=== PATIENT | male | born 1960 | race Caucasian/White ===

== ENCOUNTER 2017-07-28 16:11 | Inpatient (IN) ==
[2017-07-28] MEDS ORDERED: 0.9 % Sodium Chloride 1,000 ML IVC ONE (18:46)
[2017-07-28] MEDS ORDERED: Piperacillin/Tazobactam 3.375 GM in D5% in Water (Mini-Bag+) 100 ML IVPB ONE (18:46)
--- NOTE | 2017-07-28 18:47 | Emergency Department Note ---
Disposition Clinical Impression: Alcohol use, Sepsis Bilateral pneumonia Qualifiers: Pneumonia type: due to unspecified organism Lung location: unspecified part of lung Qualified Code(s): J18.9 - Pneumonia, unspecified organism Disposition: Admitted As Inpatient Condition: Fair Referrals: Roland Condon DO [Primary Care Provider] - Forms: ED Satisfaction Letter Time of Disposition: 19:54 SOB HPI - General Chief Complaint: ED Shortness of Breath/Dyspnea Stated Complaint: double pneumonia Time Seen by Provider: 07/28/17 17:23 Source: patient Limitations: no limitations Nursing Notes Reviewed: Yes Vital Signs Reviewed: Yes - History of Present Illness 56-year-old male history of hypertension, hyperlipidemia presents with about a week of cough and congestion, patient states that he woke up this morning feeling generalized aches, myalgias, states that his symptoms got worse, he is coughing a lot productive of sputum is clear round, the patient states he went to urgent care and they diagnosed him with bilateral pneumonia, the patient was sent here, some fevers of 102-103 degrees at home. Has been taking Tylenol. Also reports some chest discomfort, and nausea. Rates his pain 3 out of 10 and worse with coughing. +EtOH use Pt Subjective Complaint: shortness of breath Context: recent illness Severity: moderate Consistency/Duration: intermittent Improves with: nothing Worsens with: lying flat, exertion Associated symptoms: Reports: chest pain, fever, cough, sputum production Treatment prior to arrival: none Cough present: No Sputum production: Yes Sputum Amount: Small Sputum Color: Clear, White - Related Data Home Medications Medication Instructions Recorded Confirmed Acyclovir [Zovirax] 400 mg PO DAILY 07/28/17 07/28/17 Lisinopril/Hydrochlorothiazide 1 each PO BID 07/28/17 07/28/17 [Zestoretic 20-12.5 mg Tablet] Potassium Chloride [K-Tab ER] 20 meq PO TID 07/28/17 07/28/17 Allergies Allergy/AdvReac Type Severity Reaction Status Date / Time No Known Allergies Allergy Verified 07/28/17 14:54 All systems ED: reviewed and negative except as stated. Review of Systems: As Per HPI Constitutional: Reports: fever, chills Eyes: Denies: eye pain ENT ED: Denies: ear pain, throat pain Cardiovascular: Denies: chest pain Respiratory: Reports: as per HPI, cough, dyspnea Gastrointestinal: Reports: nausea. Denies: abdominal pain Genitourinary: Denies: urgency, dysuria Musculoskeletal: Denies: back pain Integumentary: Denies: rash, abrasion Past Medical History - Past Medical History Attestation: Yes The following information was validated with the patient. Source: patient Medical history: Reports: hypertension Psychiatric history: Reports: no psych history - Social History Smoking Status: Never smoker Smokeless Tobacco Status: No Alcohol use: Reports: occasionally Drug use: Reports: none Physical Exam Constitutional: Middle-aged male appears mildly disheveled, tachycardic and febrile Eyes: PERRLA, sclera anicteric ENT & Mouth: MM dry Neck: normal inspection, neck is supple Resp: Coarse Rales at the bases bilaterally CV: Tachycardia no m/g/r GI: normal inspection, soft, no guarding or rigidity Neuro: A&O3, CNII-XII grossly intact, SAHU Skin: on limited exam, skin intact with no rashes or lesions - General Limitations: no limitations General appearance: alert Course Course Narrative: Patient with evidence of a pneumonia, tachycardia and fever make him septic patient, plan is for aspiration pneumonia coverage with Zosyn, before that we will get blood cultures lactate, liter fluid bolus and maintenance fluid, chest CT scan ordered to better delineate his infection, patient also is getting blood work times lactate blood cultures 2 CBC BMP troponin - Reevaluation(s) Reevaluation #1: Patient meets criteria for sepsis with tachycardia heart rate greater than 90 temperature greater than 100.8 his bilateral infiltrates was started on broad- spectrum antibiotics's lactate is not elevated, patient was admitted to Dr. Perrin service the hospitalist is accepting no evidence of severe sepsis or septic shock stable vital signs fluids going patient stable at the time of admission. Time: 19:54 Vital Signs Temperature 100.8 F H 07/28/17 16:36 Pulse Rate 91 07/28/17 16:36 Respiratory Rate 20 07/28/17 16:36 Blood Pressure 135/86 07/28/17 16:36 O2 Sat by Pulse Oximetry 94 07/28/17 16:36 Temperature 100.8 F H 07/28/17 16:36 Pulse Rate 87 07/28/17 19:54 Respiratory Rate 18 07/28/17 19:54 Blood Pressure 129/83 07/28/17 19:54 O2 Sat by Pulse Oximetry 94 07/28/17 19:54 Oxygen Delivery Oxygen Delivery Room Air Shortness of Breath/Dyspnea - Differential Diagnosis Likely: congestive heart failure, pneumonia, pulmonary embolism - Medical Records Medical records reviewed: Yes I reviewed the patient's medical records. - Lab Data Lab results reviewed: Yes I reviewed the patient's lab results. Result diagrams: 07/28/17 18:41 07/28/17 18:41 Lab Results 07/28/17 07/28/17 07/28/17 Range/Units 18:41 18:41 18:41 WBC 5.0 (4.3-11.1) K/mcL RBC 4.52 (4.19-5.50) M/mcL Hgb 15.1 (12.9-16.9) g/dL Hct 42.1 (37.5-50.1) % MCV 93.1 (83.0-100.0) fL MCH 33.4 H (28.0-33.3) pg MCHC 35.9 H (31.6-35.5) g/dL RDW 12.6 (11.5-14.5) % Plt Count 220 (140-400) K/mcL MPV 9.9 (9.4-12.4) fL Seg Neutrophils % 60.0 % Band Neutrophils % 2.0 (0-4) % Lymphocytes % 28.0 % Monocytes % 6.0 % Metamyelocytes % 4.0 H (0) % Neutrophils # 3.1 (1.6-8.9) K/mcL Lymphocytes # 1.4 (0.6-4.6) K/mcL Monocytes # 0.3 (0.0-1.3) K/mcL Reactive Lymphocytes Present A (Not Present) Platelet Estimate Normal (Normal) Sodium 134 L (136-145) mEq/L Potassium 3.8 (3.5-5.1) mEq/L Chloride 99 (98-107) mEq/L Carbon Dioxide 26 (23-29) mEq/L BUN 13 (6-20) mg/dL Creatinine 0.79 (0.70-1.30) mg/dL Est GFR ( Amer) > 60 (> 60) Est GFR (Non-Af Amer) > 60 (> 60) BUN/Creatinine Ratio 16 (6-26) Glucose 96 (70-105) mg/dL Calculated Osmolality 278 L (280-300) Lactic Acid (0.5-2.2) mmol/L Calcium 8.7 (8.6-10.3) mg/dL Troponin I < 0.03 (< 0.04) ng/mL B-Natriuretic Peptide (Less than 100) pg/mL 07/28/17 07/28/17 Range/Units 18:41 18:41 WBC (4.3-11.1) K/mcL RBC (4.19-5.50) M/mcL Hgb (12.9-16.9) g/dL Hct (37.5-50.1) % MCV (83.0-100.0) fL MCH (28.0-33.3) pg MCHC (31.6-35.5) g/dL RDW (11.5-14.5) % Plt Count (140-400) K/mcL MPV (9.4-12.4) fL Seg Neutrophils % % Band Neutrophils % (0-4) % Lymphocytes % % Monocytes % % Metamyelocytes % (0) % Neutrophils # (1.6-8.9) K/mcL Lymphocytes # (0.6-4.6) K/mcL Monocytes # (0.0-1.3) K/mcL Reactive Lymphocytes (Not Present) Platelet Estimate (Normal) Sodium (136-145) mEq/L Potassium (3.5-5.1) mEq/L Chloride (98-107) mEq/L Carbon Dioxide (23-29) mEq/L BUN (6-20) mg/dL Creatinine (0.70-1.30) mg/dL Est GFR ( Amer) (> 60) Est GFR (Non-Af Amer) (> 60) BUN/Creatinine Ratio (6-26) Glucose (70-105) mg/dL Calculated Osmolality (280-300) Lactic Acid 1.0 (0.5-2.2) mmol/L Calcium (8.6-10.3) mg/dL Troponin I (< 0.04) ng/mL B-Natriuretic Peptide 13 (Less than 100) pg/mL - Radiology Data Radiology results reviewed: Yes I reviewed the patient's radiology results. Chest CT 07/28/17 17:32 IMPRESSION: Scattered bilateral airspace disease is likely infectious/ inflammatory in etiology. Consider short-term follow-up in 3 months to ensure resolution. Nodule on chest x-ray corresponds to a calcified granuloma in the left lower lobe. D/ / Jay Pulido MD / Jay Pulido MD Interpreting Provider: Jay Pulido MD - EKG Data EKG attestation: Yes I reviewed and interpreted this EKG. EKG shows normal: Reports: sinus rhythm Rate: Reports: normal (87 bpm WA 155 QRS 102 QTC 408 no evidence of acute ischemic changes.) Rhythm: Reports: NSR [place]/QRS: Reports: normal Attestation Statement - Attestation Attestation: I examined this patient and my medical decision-making was reviewed with the Resident Physician. I agree with the documented findings, disposition and treatment plan as described except to the extent set forth below. Findings consistent with pneumonia. Plan to admit after broad-spectrum antibiotics. Patient is stable at the time of admission. Blood cultures were sent. Patient had no hypoxia at the time of admission.
[2017-07-28 18:56] LABS: Hematocrit 42.1 % (37.5-50.1); Hemoglobin 15.1 g/dL (12.9-16.9); Lymphocytes # 1.4 K/mcL (0.6-4.6); Mean Corpuscular HGB Conc 35.9 g/dL (31.6-35.5); Mean Corpuscular Hemoglobin 33.4 pg (28.0-33.3); Mean Corpuscular Volume 93.1 fL (83.0-100.0); Mean Platelet Volume 9.9 fL (9.4-12.4); Monocytes # 0.3 K/mcL (0.0-1.3); Platelet Count 220 K/mcL (140-400); Red Blood Count 4.52 M/mcL (4.19-5.50); Red Cell Distribution Width 12.6 % (11.5-14.5)
[2017-07-28 19:16] LABS: Neutrophils # 3.1 K/mcL (1.6-8.9); Platelet Estimate Normal (Normal); Reactive Lymphocytes Present (Not Present)
[2017-07-28 19:43] LABS: BUN/Creatinine Ratio 16 (6-26); Blood Urea Nitrogen 13 mg/dL (6-20); Calcium 8.7 mg/dL (8.6-10.3); Carbon Dioxide 26 mEq/L (23-29); Chloride 99 mEq/L (98-107); Glucose 96 mg/dL (70-105); Osmolality,Calculated 278 (280-300); Potassium 3.8 mEq/L (3.5-5.1); Sodium 134 mEq/L (136-145); eGFR For African Americans > 60 (> 60); eGFR For Non-African Americans > 60 (> 60)
[2017-07-28] MEDS ORDERED: Piperacillin/Tazobactam 3.375 GM in Water for inj. (sterile) 20 ML 20 ML IVP ONE (19:45)
--- NOTE | 2017-07-28 20:24 | Internal Med History&Physical ---
<Freda Ahn - Last Filed: 07/28/17 20:20> Date of Encounter: 07/28/17 Time of Encounter: 20:20 Assessment and Plan (1) Bilateral pneumonia Current visit: Yes Status: Acute 56-year-old gentleman presented to the emergency room from urgent care with one week of coughing, congestion, fever, malaise, and fatigue. 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 Pulse oximetry Sputum culture Cough suppressant will need f/u chest xray in 4 to 6 weeks to follow for resolution Qualifiers: Pneumonia type: due to unspecified organism Lung location: unspecified part of lung Qualified Code(s): J18.9 - Pneumonia, unspecified organism (2) Alcohol use Current visit: Yes Status: Acute CIWA scale to monitor for withdrawal (3) Hypertension Current visit: Yes Status: Acute Continue home medications and monitor blood pressure Qualifiers: Hypertension type: essential hypertension Qualified Code(s): I10 - Essential (primary) hypertension (4) Lung nodule, solitary Current visit: Yes Status: Acute Three-month follow-up as per his primary care physician, calcified granuloma (5) Herpes genitalis in men Current visit: Yes Status: Acute continue acyclovir Internal Medicine - H&P: HPI Admitted From: Home Plans for Post Hospital Care: Home History of present illness: Mr. Garcia is a 56 year old male who presented to the ER after being evaluated at a local urgent care. The patient's had a week of cough, congestion, fever, decreased appetite, and fatigue. He stated he felt better yesterday and was up today doing some things and began to feel worse with lightheadedness and felt he was going to pass out. He stated he has coughed so much that he has chest and abdominal wall pain. He states his cough is productive for frothy white sputum. He has been taking NyQuil and DayQuil with little effect. A past medical history significant for hypertension, obesity, and alcohol use consisting of the fifth of whiskey a week. He states he quit smoking about 23 years ago. He is also treated for genital herpes. He is currently sitting in a stretcher in the ER in no distress. He is on room air with no accessory muscle use noted. He reports his pain around a 3 out of a 10 scale with coughing. He is aware of the plan for admission with IV antibiotics, he has no questions or concerns. Past Med Surg Social Fam HX - Past Medical History Medical history: hypertension, other (Obesity, herpes) Psychiatric history: no psych history - Social History Smoking Status: Former smoker Smokeless Tobacco Status: No Alcohol use: occasionally (Drinks 1/5 of whiskey per week and has never had withdrawal if he stops drinking) Drug use: none Occupational status: employed Current living situation: Home - Independent Activity Level: Independent ambulation - Additional Family History Additional family history: Noncontributory to this event Internal Medicine - H&P: Meds Acyclovir [Zovirax] 400 mg PO DAILY 07/28/17 [History] Lisinopril/Hydrochlorothiazide [Zestoretic 20-12.5 mg Tablet] 1 each PO BID 05/05 [History] Potassium Chloride [K-Tab ER] 20 meq PO TID 07/28/17 [History] 3 Allergy/AdvReac Type Severity Reaction Status Date / Time No Known Allergies Allergy Verified 07/28/17 14:54 All Systems PM: A 10-system review of systems was performed and is negative for pertinent findings except as documented above in the HPI. - Constitutional Constitutional: anorexia, chills, fatigue, fever(s), weakness, no night sweats - EENT Eyes: no change in vision, no discharge, no pain, no photophobia Ears: no ear discharge, no ear pain, no tinnitus Nose, mouth and throat: no dysphagia, no nasal discharge, no neck pain, no sore throat - Cardiovascular Cardiovascular ROS IM: chest pain (With coughing), no diaphoresis, no dyspnea, no lightheadedness, no palpitations, no syncope - Respiratory Respiratory: cough, dyspnea on exertion, pain with cough, no dyspnea, no wheezing, no excessive phlegm production - Gastrointestinal Gastrointestinal: diarrhea, no abdominal pain, no hematemesis, no hematochezia, no melena, no nausea, no vomiting - Musculoskeletal Musculoskeletal ROS IM: no numbness, no tingling - Integumentary Integumentary IM: no rash, no unusual bruising - Neurological Neurological ROS: no confusion, no convulsions, no focal weakness, no numbness, no tingling, no tremor(s) - Hematologic/Lymphatic Hematologic/Lymphatic: no easy bruising - Constitutional Vitals: Temp Pulse Resp BP Pulse Ox 100.8 F H 87 18 129/83 94 07/28/17 16:36 07/28/17 19:54 07/28/17 19:54 07/28/17 19:54 07/28/17 19:54 General appearance: Present: A&O X 3, pleasant, no acute distress, obese, answers questions appropriately - Head Head exam: Present: atraumatic, normocephalic - Eye Eye exam: Present: PERRL, conjuntiva pink, sclera anicteric Pupils: Present: PERRL - Neck Neck exam general surgery: Present: supple, trachea midline. Absent: lymphadenopathy - Respiratory Respiratory exam: Present: CTAB (Decreased in the bases, no cough on forced expiration, no adventitious breath sounds noted). Absent: accessory muscle use , rales, rhonchi, wheezes - Cardiovascular Cardiovascular exam: Present: RRR, +S1, +S2. Absent: diastolic murmur, gallop, rubs, systolic murmur - GI/Abdominal GI/Abdominal exam: Present: firm (Protuberant, abdominal muscle sore with movement and palpation), normal bowel sounds, no peritoneal signs. Absent: distended, tenderness - Extremities Exam Extremities exam: Absent: calf tenderness, cyanotic, pedal edema - Neurological Exam Neurological exam: Present: CN II-XII intact, oriented X3, no focal deficits. Absent: pronater drift, facial droop, speech deficit - Skin Skin exam: Present: intact, warm (Slight diaphoretic) Internal Med - H&P Results - Labs CBC & Chem 7: 07/28/17 18:41 07/28/17 18:41 Labs: Short CBC 07/28/17 Range/Units 18:41 WBC 5.0 (4.3-11.1) K/mcL Hgb 15.1 (12.9-16.9) g/dL Hct 42.1 (37.5-50.1) % Plt Count 220 (140-400) K/mcL Neutrophils # 3.1 (1.6-8.9) K/mcL BMP 07/28/17 18:41 Sodium 134 L Potassium 3.8 Chloride 99 Carbon Dioxide 26 BUN 13 Creatinine 0.79 Glucose 96 Calcium 8.7 Cardiac Enzymes 07/28/17 Range/Units 18:41 Troponin I < 0.03 (< 0.04) ng/mL - Impressions ITS Impressions Chest CT 07/28/17 17:32 IMPRESSION: Scattered bilateral airspace disease is likely infectious/ inflammatory in etiology. Consider short-term follow-up in 3 months to ensure resolution. Nodule on chest x-ray corresponds to a calcified granuloma in the left lower lobe. D/ / Jay Pulido MD / Jay Pulido MD Interpreting Provider: Jay Pulido MD <Musa Perrin J - Last Filed: 07/28/17 21:58> Date of Encounter: 07/28/17 Internal Medicine - H&P: HPI History of present illness: Mr. Garcia is a 56 year old male All Systems PM: A 10-system review of systems was performed and is negative for pertinent findings except as documented above in the HPI. - Constitutional Vitals: Temp Pulse Resp BP Pulse Ox 100.8 F H 87 18 129/83 94 07/28/17 16:36 07/28/17 19:54 07/28/17 19:54 07/28/17 19:54 07/28/17 19:54 Internal Med - H&P Results - Labs CBC & Chem 7: 07/28/17 18:41 07/28/17 18:41 - Attending Attestation I have personally performed a face to face evaluation on this patient. I have reviewed and agree with the care plan. History and Exam by me shows: 56 yo male with cough and cold symptoms for 1 week with associated chest soreness. Developed progressive SOB, could not walk to garage. Went to urgent care with CXR suspicous for PNA. Admitted to CAP therapy needing IV antibiotics CT/CT chest wo con IMPRESSION: Scattered bilateral airspace disease is likely infectious/ inflammatory in etiology. Consider short-term follow-up in 3 months to ensure resolution. Nodule on chest x-ray corresponds to a calcified granuloma in the left lowerlobe. General - AAO x 3 Psych - Appropriate affect/speech. No agitation Eyes - WADE. Eye lids intact. No scleral icterus Neuro - No gross peripheral or central neuro deficits with intact CN 2-12 exam Heart - Sinus. RRR. S1 and S2 present. No added HS/murmurs appreciated. No elevated JVD appreciated. Lung - Decreased air entry b/l, bibasal crackles. No wheezes appreciated GI - Soft, non-tender. No hepatosplenomegaly/ascites. BS+ - No CVA/suprapubic tenderness or palpable bladder distension A/P PNA - treat for CAP - IV zosyn, azithro - send serologies, RVP - pulse ox - close monitoring Alcoholism - only drinks 1/5 every weekend - no hx of withdrawal - watch closely HTN Genital herpes - acyclovir
[2017-07-28] MEDS ORDERED: *HR* Promethazine 25 MG/ML VIAL IVP PRN (20:54)
[2017-07-28] MEDS ORDERED: *HR* LORazepam 2 MG/ML VIAL IVP PRN ×3 (20:54)
[2017-07-28] MEDS ORDERED: Naloxone 0.4 MG/ML INJ IVP PRN (21:07)
[2017-07-28] MEDS ORDERED: Acetaminophen 325 MG TABLET PO PRN (21:07)
[2017-07-28] MEDS ORDERED: Ipratropium/Albuterol Neb 3 ML IH PRN (21:58)
[2017-07-28] MEDS: Azithromycin 500 MG in D5% in Water 250 ML IVPB SCH (22:37)
[2017-07-28] MEDS: 0.9 % Sodium Chloride 1,000 ML IVC SCH (23:47)
[2017-07-28] MEDS: *HR* Heparin 5,000 UNIT/ML VIAL SQ SCH (23:47)
[2017-07-29 01:56] LABS: Adenovirus Not Detected (Not Detect); Bordetella Pertussis Not Detected (Not Detect); Chlamydophila pneumoniae Not Detected (Not Detect); Coronavirus 229E Not Detected (Not Detect); Coronavirus HKU1 Not Detected (Not Detect); Coronavirus NL63 Not Detected (Not Detect); Coronavirus OC43 Not Detected (Not Detect); Human Metapneumovirus Not Detected (Not Detect); Human Rhinovirus/Enterovirus Not Detected (Not Detect); Influenza A Subtype 2009 H1 Not Detected (Not Detect); Influenza A Untypeable Not Detected (Not Detect); Influenza B Not Detected (Not Detect); Mycoplasma pneumoniae Not Detected (Not Detect); Parainfluenza Virus 1 Not Detected (Not Detect); Parainfluenza Virus 2 Not Detected (Not Detect); Parainfluenza Virus 3 Not Detected (Not Detect); Parainfluenza Virus 4 Not Detected (Not Detect); Respiratory Syncytial Virus Not Detected (Not Detect)
[2017-07-29] MEDS: Piperacillin/Tazobactam 3.375 GM/200 ML BAG IVPB SCH ×3 (03:11→22:10)
[2017-07-29 04:21] LABS: Basophils % 0.5 %; Immature Granulocytes % 0.8 % (0-4); Lymphocytes # 1.7 K/mcL (0.6-4.6); Lymphocytes % 43.5 %; Mean Corpuscular HGB Conc 34.7 g/dL (31.6-35.5); Mean Corpuscular Hemoglobin 32.8 pg (28.0-33.3); Mean Corpuscular Volume 94.5 fL (83.0-100.0); Mean Platelet Volume 9.8 fL (9.4-12.4); Monocytes # 0.4 K/mcL (0.0-1.3); Monocytes % 11.5 %; Neutrophils # 1.7 K/mcL (1.6-8.9); Platelet Count 216 K/mcL (140-400); Red Blood Count 4.02 M/mcL (4.19-5.50); Red Cell Distribution Width 12.9 % (11.5-14.5); Segmented Neutrophils % 43.7 %
[2017-07-29 04:27] LABS: INR 1.1; Prothrombin Time 11.6 Seconds (9.4-12.1)
[2017-07-29 04:29] LABS: Activated Partial Thrombo Time 26.8 Seconds (26.0-36.0)
[2017-07-29 04:31] LABS: Hemoglobin 13.2 g/dL (12.9-16.9)
[2017-07-29] MEDS: Ipratropium/Albuterol Neb 3 ML IH SCH ×4 (04:37→22:36)
[2017-07-29 04:48] LABS: Platelet Estimate Normal (Normal); Reactive Lymphocytes Present (Not Present)
[2017-07-29 05:05] LABS: BUN/Creatinine Ratio 17 (6-26); Blood Urea Nitrogen 13 mg/dL (6-20); Calcium 7.9 mg/dL (8.6-10.3); Carbon Dioxide 27 mEq/L (23-29); Chloride 103 mEq/L (98-107); Chol/HDL Ratio 3.4 (0-4.9); Cholesterol 99 mg/dL (< 200); Glucose 86 mg/dL (70-105); HDL Cholesterol 29 mg/dL (40-59); LDL Cholesterol,Calculated 47 mg/dL (0-99); Magnesium 1.9 mg/dL (1.6-2.6); Osmolality,Calculated 283 (280-300); Phosphorous 2.6 mg/dL (2.7-4.5); Potassium 3.4 mEq/L (3.5-5.1); Sodium 137 mEq/L (136-145); Triglycerides 116 mg/dL (< 150); eGFR For African Americans > 60 (> 60); eGFR For Non-African Americans > 60 (> 60)
[2017-07-29] MEDS: *HR* Heparin 5,000 UNIT/ML VIAL SQ SCH ×3 (05:58→22:10)
[2017-07-29] MEDS: 0.9 % Sodium Chloride 1,000 ML IVC SCH (09:14)
--- NOTE | 2017-07-29 09:14 | Internal Med Progress Note ---
<Rodrigo Tariq - Last Filed: 07/29/17 13:53> Date of Encounter: 07/29/17 Time of Encounter: 09:14 - Assessment and plan (1) Bilateral pneumonia Current Visit: Yes Status: Acute Assessment and plan: CT chest on arrival: Scattered bilateral airspace disease is likely infectious / inflammatory in etiology. No leukcytosis VSS Negative Flu swab, Viral PCR neg, legionella and strep pneumo antigen urine negative Pending mycoplasm and blood cultures Sepsis criteria met on arrival with fever and HR >90 - Resolving Suspect aspiration etiology with chronic EtOH abuse Plan: IV Zosyn and Azithromycin IVF Duonebs Adding Prednisone 40mg daily O2 supplementation Supportive care Will continue to monitor closely Qualifiers: Pneumonia type: due to unspecified organism Lung location: unspecified part of lung Qualified Code(s): J18.9 - Pneumonia, unspecified organism (2) Acute respiratory failure with hypoxia Current Visit: Yes Status: Resolved Assessment and plan: Present on admission. Still at high risk and will continue to monitor his respiratory status closely (3) Sepsis Current Visit: Yes Status: Resolved Assessment and plan: Criteria met on arrival with elevated temp and HR>90 with known PNA Resolving See above Qualifiers: Sepsis type: sepsis due to unspecified organism Qualified Code(s): A41.9 - Sepsis, unspecified organism (4) ETOH abuse Current Visit: Yes Status: Acute Assessment and plan: States that he drinks 1-1.5 fifths of whiskey per week CIWA protocol in place Multivitamin Folic acid Thiamine PRN Ativan (5) Hypertension Current Visit: Yes Status: Acute Assessment and plan: BP stable Continue Lisinopril/HCTZ combo unchanged Qualifiers: Hypertension type: essential hypertension Qualified Code(s): I10 - Essential (primary) hypertension (6) Herpes genitalis in men Current Visit: Yes Status: Acute Assessment and plan: Continue Acyclovir (7) Lung nodule, solitary Current Visit: Yes Status: Acute Assessment and plan: Nodule on chest x-ray corresponds to a calcified granuloma in the left lower lobe. Followup in 3 months for repeat evaluation (8) DVT prophylaxis Current Visit: Yes Status: Acute Assessment and plan: Heparin 5000 units q8hrs - Subjective Interval history: Patient is admitted for bilateral PNA He is resting comfortably in bed this morning No concerns per nursing overnight He reports that is breathing is mildly improved from yesterday Denies any CP, fevers, chills. n/v, abdominal pain or GI issues - Constitutional Vitals: Temp Pulse Resp BP Pulse Ox 98.6 F 67 16 129/84 96 07/29/17 06:46 07/29/17 06:46 07/29/17 06:46 07/29/17 06:46 07/29/17 06:46 General appearance: Present: A&O X 3, pleasant, no acute distress, obese, answers questions appropriately - Head Head exam: Present: atraumatic, normocephalic - Eye Eye exam: Present: EOMI, normal appearance, conjuntiva pink, sclera anicteric - ENT ENT exam: Present: mucous membranes moist - Neck Neck exam general surgery: Present: supple, trachea midline - Respiratory Respiratory exam: Present: rhonchi (bibasilar). Absent: accessory muscle use, chest wall tenderness, decreased breath sounds, respiratory distress, tachypnea - Cardiovascular Cardiovascular exam: Present: RRR, +S1, +S2 - GI/Abdominal GI/Abdominal exam: Present: normal bowel sounds, soft. Absent: tenderness - Extremities Exam Extremities exam: Present: warm. Absent: pedal edema, tenderness - Neurological Exam Neurological exam: Present: alert, oriented X3, no focal deficits - Psychiatric Psychiatric exam: Present: normal affect, normal mood - Skin Skin exam: Present: dry, normal color, warm. Absent: diaphoretic Internal Medicine: Result - Labs CBC & Chem 7: 07/29/17 03:31 07/29/17 03:31 Labs: Short CBC 07/29/17 Range/Units 03:31 WBC 3.8 L (4.3-11.1) K/mcL Hgb 13.2 D (12.9-16.9) g/dL Hct 38.0 (37.5-50.1) % Plt Count 216 (140-400) K/mcL Neutrophils # 1.7 (1.6-8.9) K/mcL BMP 07/29/17 03:31 Sodium 137 Potassium 3.4 L Chloride 103 Carbon Dioxide 27 BUN 13 Creatinine 0.77 Glucose 86 Calcium 7.9 L - ABG Interpretation ABG results: PT/INR, D-dimer PT 11.6 Seconds (9.4-12.1) 07/29/17 03:31 Consult Discharge Plan - Plan Referrals: Roland Condon DO [Primary Care Provider] - <Yari Bui - Last Filed: 07/29/17 16:55> Date of Encounter: 07/29/17 - Constitutional Vitals: Temp Pulse Resp BP Pulse Ox 97.9 F 82 15 145/70 93 07/29/17 11:04 07/29/17 11:04 07/29/17 11:04 07/29/17 11:04 07/29/17 11:04 Internal Medicine: Result - Labs CBC & Chem 7: 07/29/17 03:31 07/29/17 03:31 Labs: Short CBC 07/29/17 Range/Units 03:31 WBC 3.8 L (4.3-11.1) K/mcL Hgb 13.2 D (12.9-16.9) g/dL Hct 38.0 (37.5-50.1) % Plt Count 216 (140-400) K/mcL Neutrophils # 1.7 (1.6-8.9) K/mcL BMP 07/29/17 03:31 Sodium 137 Potassium 3.4 L Chloride 103 Carbon Dioxide 27 BUN 13 Creatinine 0.77 Glucose 86 Calcium 7.9 L - ABG Interpretation ABG results: PT/INR, D-dimer PT 11.6 Seconds (9.4-12.1) 07/29/17 03:31 - Attending Attestation I examined this patient and my medical decision-making was reviewed with the Resident Physician Dr. Tariq. I agree with the documented findings, disposition and treatment plan as described except to the extent set forth below. This is a 56 y/o M presented to local urgent care with worsening SOB, CORDOVA, Cough with expectoration. His chest CT showed b/l infiltrates and LLL nodule. Pt was admitted here for pneumonia and acute hypoxic resp failure. He states he is feeling little better now Gen: A, A, O x 3 Chest: Diminished BS b/;, diffuse wheezing, No crackles, no rales Heart; S1S2+ RRR No murmurs a/p 1. Acute pneumonia - mostly bacterial 2. Acute COPD exacerbation 3. Acute hypoxic resp failure cont empirical abx.. will deescalate abx in AM depending on how he responds in next 24hrs started him on high dose IV steroids since he does have diffuse wheezing 4. Morbid obesity with BMI - 38 counseled to loose weight He might have sleep apnea, may need to go for out pt sleep studies
[2017-07-29] MEDS: Folic Acid 1 MG TABLET PO SCH (09:15)
[2017-07-29] MEDS: Lisinopril-HCTZ 20-12.5mg TABLET PO SCH ×2 (09:15→20:38)
[2017-07-29] MEDS: Acyclovir 200 MG CAPSULE PO SCH (09:16)
[2017-07-29] MEDS: Vitamin B Complex/Vit C/Vit E 1 EACH TABLET PO SCH (09:16)
[2017-07-29] MEDS: Thiamine (B-1) 100 MG TABLET PO SCH (09:16)
[2017-07-29] MEDS ORDERED: predniSONE 20 MG TABLET PO SCH (13:15)
--- NOTE | 2017-07-29 15:57 | Electrocardiograph Report ---
[address] [place] [address] Test Date: 2017-07-28 Pat Name: Aravind Garcia Department: [id number] Room: 3B Gender: M Rating Officer: : 1960 Requested By: Iglesia Sandoval Order Number: [id number] Reading MD: Katerina Galindo Measurements Intervals [place] Rate: 82 P: 8 [place]: 156 QRS: -23 QRSD: 105 T: 33 QT: 363 QTc: 402 Interpretive Statements SINUS RHYTHM BORDERLINE LEFT AXIS DEVIATION Electronically Signed On 07-29-2017 15:55:51 EST by Katerina Galindo
[2017-07-29] MEDS: MethylPREDNISolone 40 MG/ML VIAL IVP SCH (17:54)
[2017-07-29] MEDS: Azithromycin 500 MG in D5% in Water 250 ML IVPB SCH (20:46)
[2017-07-30] MEDS: MethylPREDNISolone 40 MG/ML VIAL IVP SCH ×3 (00:18→17:43)
[2017-07-30] MEDS: Ipratropium/Albuterol Neb 3 ML IH SCH ×4 (04:11→23:17)
[2017-07-30] MEDS: Piperacillin/Tazobactam 3.375 GM/200 ML BAG IVPB SCH ×3 (04:24→21:36)
[2017-07-30] MEDS: *HR* Heparin 5,000 UNIT/ML VIAL SQ SCH ×3 (05:08→21:36)
[2017-07-30 05:58] LABS: Basophils % 0.3 %; Hemoglobin 14.2 g/dL (12.9-16.9); Immature Granulocytes % 0.6 % (0-4); Lymphocytes # 0.8 K/mcL (0.6-4.6); Lymphocytes % 22.3 %; Mean Corpuscular HGB Conc 34.6 g/dL (31.6-35.5); Mean Corpuscular Hemoglobin 32.3 pg (28.0-33.3); Mean Corpuscular Volume 93.4 fL (83.0-100.0); Mean Platelet Volume 9.4 fL (9.4-12.4); Monocytes # 0.1 K/mcL (0.0-1.3); Monocytes % 3.4 %; Neutrophils # 2.6 K/mcL (1.6-8.9); Platelet Count 282 K/mcL (140-400); Red Blood Count 4.39 M/mcL (4.19-5.50); Red Cell Distribution Width 12.5 % (11.5-14.5); Segmented Neutrophils % 73.4 %
[2017-07-30 06:10] LABS: BUN/Creatinine Ratio 16 (6-26); Blood Urea Nitrogen 12 mg/dL (6-20); Calcium 8.8 mg/dL (8.6-10.3); Carbon Dioxide 24 mEq/L (23-29); Chloride 103 mEq/L (98-107); Glucose 154 mg/dL (70-105); Osmolality,Calculated 285 (280-300); Potassium 3.8 mEq/L (3.5-5.1); Sodium 136 mEq/L (136-145); eGFR For African Americans > 60 (> 60); eGFR For Non-African Americans > 60 (> 60)
[2017-07-30 06:27] LABS: Platelet Estimate Normal (Normal)
[2017-07-30] MEDS: Folic Acid 1 MG TABLET PO SCH (08:34)
[2017-07-30] MEDS: Acyclovir 200 MG CAPSULE PO SCH (08:34)
[2017-07-30] MEDS: Lisinopril-HCTZ 20-12.5mg TABLET PO SCH ×2 (08:34→20:07)
[2017-07-30] MEDS: Thiamine (B-1) 100 MG TABLET PO SCH (08:34)
[2017-07-30] MEDS: Vitamin B Complex/Vit C/Vit E 1 EACH TABLET PO SCH (08:34)
--- NOTE | 2017-07-30 08:40 | Internal Med Progress Note ---
<Rodrigo Tariq - Last Filed: 07/30/17 08:51> Date of Encounter: 07/30/17 Time of Encounter: 08:38 - Assessment and plan (1) Bilateral pneumonia Current Visit: Yes Status: Acute Assessment and plan: CT chest on arrival: Scattered bilateral airspace disease is likely infectious / inflammatory in etiology. No leukcytosis, VSS Negative Flu swab, Viral PCR neg, legionella and strep pneumo antigen urine negative, Blood Cx neg x2 Pending mycoplasm Sepsis criteria met on arrival with fever and HR >90 - Resolving Suspect aspiration etiology with chronic EtOH abuse - Anaerobes and atypicals covered Patient is moving air much better today with mild wheezing throughout Plan: IV Zosyn and Azithromycin IVF Duonebs` Decreased to Solu-Medrol q12hrs O2 supplementation Supportive care Will continue to monitor closely Qualifiers: Pneumonia type: due to unspecified organism Lung location: unspecified part of lung Qualified Code(s): J18.9 - Pneumonia, unspecified organism (2) Acute respiratory failure with hypoxia Current Visit: Yes Status: Resolved Assessment and plan: Present on admission. Improving Ordered overnight oxygen study Will additionally need sleep study as an outpatient on discharge Still at high risk and will continue to monitor his respiratory status closely (3) Sepsis Current Visit: Yes Status: Resolved Assessment and plan: Criteria met on arrival with elevated temp and HR>90 with known PNA Resolving See above Qualifiers: Sepsis type: sepsis due to unspecified organism Qualified Code(s): A41.9 - Sepsis, unspecified organism (4) ETOH abuse Current Visit: Yes Status: Acute Assessment and plan: States that he drinks 1-1.5 fifths of whiskey per week HR stable CIWA protocol in place Multivitamin Folic acid Thiamine PRN Ativan (5) Hypertension Current Visit: Yes Status: Acute Assessment and plan: BP stable Continue Lisinopril/HCTZ combo unchanged Qualifiers: Hypertension type: essential hypertension Qualified Code(s): I10 - Essential (primary) hypertension (6) Herpes genitalis in men Current Visit: Yes Status: Acute Assessment and plan: Continue Acyclovir (7) Lung nodule, solitary Current Visit: Yes Status: Acute Assessment and plan: Nodule on chest x-ray corresponds to a calcified granuloma in the left lower lobe. Followup in 3 months for repeat evaluation (8) DVT prophylaxis Current Visit: Yes Status: Acute Assessment and plan: Heparin 5000 units q8hrs - Subjective Interval history: Patient is admitted for bilateral PNA He is ambulating around the room today on evaluation No concerns per nursing overnight He reports that is breathing is mildly improved from yesterday but coughing more Denies any CP, fevers, chills. n/v, abdominal pain or GI issues - Constitutional Vitals: Temp Pulse Resp BP Pulse Ox 97.7 F 73 18 138/90 94 07/30/17 07:28 07/30/17 07:28 07/30/17 07:28 07/30/17 07:28 07/30/17 07:28 General appearance: Present: cooperative, A&O X 3, pleasant, no acute distress, obese, answers questions appropriately - Head Head exam: Present: atraumatic, normocephalic - Eye Eye exam: Present: EOMI, normal appearance, conjuntiva pink, sclera anicteric - ENT ENT exam: Present: mucous membranes moist - Neck Neck exam general surgery: Present: supple, trachea midline - Respiratory Respiratory exam: Present: decreased breath sounds, wheezes. Absent: accessory muscle use, chest wall tenderness, rales, respiratory distress, rhonchi, tachypnea - Cardiovascular Cardiovascular exam: Present: RRR, +S1, +S2 - GI/Abdominal GI/Abdominal exam: Present: normal bowel sounds. Absent: soft, tenderness - Extremities Exam Extremities exam: Present: warm. Absent: calf tenderness, pedal edema, tenderness - Neurological Exam Neurological exam: Present: alert, oriented X3, no focal deficits - Psychiatric Psychiatric exam: Present: normal affect, normal mood - Skin Skin exam: Present: dry, warm. Absent: diaphoretic Internal Medicine: Result - Labs CBC & Chem 7: 07/30/17 05:31 07/30/17 05:31 Labs: Short CBC 07/30/17 Range/Units 05:31 WBC 3.6 L (4.3-11.1) K/mcL Hgb 14.2 (12.9-16.9) g/dL Hct 41.0 (37.5-50.1) % Plt Count 282 (140-400) K/mcL Neutrophils # 2.6 (1.6-8.9) K/mcL BMP 07/30/17 05:31 Sodium 136 Potassium 3.8 Chloride 103 Carbon Dioxide 24 BUN 12 Creatinine 0.74 Glucose 154 H Calcium 8.8 - ABG Interpretation ABG results: PT/INR, D-dimer PT 11.6 Seconds (9.4-12.1) 07/29/17 03:31 Consult Discharge Plan - Plan Referrals: Roland Condon DO [Primary Care Provider] - 08/09/17 12:00 pm <Yari Bui - Last Filed: 07/30/17 16:17> Date of Encounter: 07/30/17 - Constitutional Vitals: Temp Pulse Resp BP Pulse Ox 97.8 F 85 17 129/79 92 07/30/17 15:58 07/30/17 15:58 07/30/17 15:58 07/30/17 15:58 07/30/17 15:58 Internal Medicine: Result - Labs CBC & Chem 7: 07/30/17 05:31 07/30/17 05:31 Labs: Short CBC 07/30/17 Range/Units 05:31 WBC 3.6 L (4.3-11.1) K/mcL Hgb 14.2 (12.9-16.9) g/dL Hct 41.0 (37.5-50.1) % Plt Count 282 (140-400) K/mcL Neutrophils # 2.6 (1.6-8.9) K/mcL BMP 07/30/17 05:31 Sodium 136 Potassium 3.8 Chloride 103 Carbon Dioxide 24 BUN 12 Creatinine 0.74 Glucose 154 H Calcium 8.8 - ABG Interpretation ABG results: PT/INR, D-dimer PT 11.6 Seconds (9.4-12.1) 07/29/17 03:31 - Attending Attestation I examined this patient and my medical decision-making was reviewed with the Resident Physician Dr. Tariq. I agree with the documented findings, disposition and treatment plan as described except to the extent set forth below. This is a 56 y/o M presented to local urgent care with worsening SOB, CORDOVA, Cough with expectoration. His chest CT showed b/l infiltrates and LLL nodule. Pt was admitted here for pneumonia and acute hypoxic resp failure. He states he is feeling little better now Gen: A, A, O x 3 Chest: Diminished BS b/;, diffuse wheezing, No crackles, no rales Heart; S1S2+ RRR No murmurs a/p 1. Acute pneumonia - mostly bacterial 2. Acute COPD exacerbation 3. Acute hypoxic resp failure Improving slowly cont empirical abx since his wheezing better, will start tapering steroids will do over night pulse oxy study 4. Morbid obesity with BMI - 38 counseled to loose weight He might have sleep apnea, may need to go for out pt sleep studies
[2017-07-30] MEDS ORDERED: Acetaminophen 325 MG TABLET PO PRN (14:15)
[2017-07-30] MEDS: Azithromycin 500 MG in D5% in Water 250 ML IVPB SCH (20:08)
[2017-07-31] MEDS: Ipratropium/Albuterol Neb 3 ML IH SCH ×3 (04:21→15:40)
[2017-07-31] MEDS: Piperacillin/Tazobactam 3.375 GM/200 ML BAG IVPB SCH (04:44)
[2017-07-31 05:00] LABS: Basophils % 0.1 %; Hematocrit 40.2 % (37.5-50.1); Hemoglobin 13.8 g/dL (12.9-16.9); Immature Granulocytes % 1.2 % (0-4); Lymphocytes # 1.5 K/mcL (0.6-4.6); Lymphocytes % 13.1 %; Mean Corpuscular HGB Conc 34.3 g/dL (31.6-35.5); Mean Corpuscular Hemoglobin 32.8 pg (28.0-33.3); Mean Corpuscular Volume 95.5 fL (83.0-100.0); Mean Platelet Volume 9.4 fL (9.4-12.4); Monocytes # 0.7 K/mcL (0.0-1.3); Platelet Count 360 K/mcL (140-400); Red Blood Count 4.21 M/mcL (4.19-5.50); Red Cell Distribution Width 12.4 % (11.5-14.5); Segmented Neutrophils % 79.6 %
[2017-07-31 07:44] VITALS: BP 128/79
[2017-07-31] MEDS: *HR* Heparin 5,000 UNIT/ML VIAL SQ SCH (09:38)
[2017-07-31] MEDS: MethylPREDNISolone 40 MG/ML VIAL IVP SCH (09:38)
[2017-07-31] MEDS: Vitamin B Complex/Vit C/Vit E 1 EACH TABLET PO SCH (10:03)
[2017-07-31] MEDS: Folic Acid 1 MG TABLET PO SCH (10:03)
[2017-07-31] MEDS: Lisinopril-HCTZ 20-12.5mg TABLET PO SCH (10:03)
[2017-07-31] MEDS: Thiamine (B-1) 100 MG TABLET PO SCH (10:03)
[2017-07-31] MEDS: Acyclovir 200 MG CAPSULE PO SCH (10:03)
--- NOTE | 2017-07-31 10:13 | Discharge Summary ---
<Rodrigo Tariq - Last Filed: 07/31/17 10:26> Date of Encounter: 07/31/17 Time of Encounter: 10:10 - Discharge Diagnosis (1) Bilateral pneumonia Priority: Primary Status: Acute Qualifiers: Pneumonia type: due to unspecified organism Lung location: unspecified part of lung Qualified Code(s): J18.9 - Pneumonia, unspecified organism (2) Acute respiratory failure with hypoxia Priority: Primary Status: Resolved (3) Sepsis Priority: Primary Status: Resolved Qualifiers: Sepsis type: sepsis due to unspecified organism Qualified Code(s): A41.9 - Sepsis, unspecified organism (4) ETOH abuse Priority: Secondary Status: Acute (5) Hypertension Priority: Secondary Status: Chronic Qualifiers: Hypertension type: essential hypertension Qualified Code(s): I10 - Essential (primary) hypertension (6) Herpes genitalis in men Priority: Secondary Status: Acute (7) Lung nodule, solitary Priority: Secondary Status: Acute (8) DVT prophylaxis Priority: Secondary Status: Acute - Discharge Medications Prescriptions: Amoxicillin/Clavulanate [Augmentin] 875 mg PO BIDWM 3 Days #6 tablet predniSONE [PredniSONE] See Taper PO DAILY #24 tablet Home Medications: Acyclovir [Zovirax] 400 mg PO DAILY 07/28/17 [History] Lisinopril/Hydrochlorothiazide [Zestoretic 20-12.5 mg Tablet] 1 each PO BID 05/05 [History] Potassium Chloride [K-Tab ER] 20 meq PO TID 07/28/17 [History] Amoxicillin/Clavulanate [Augmentin] 875 mg PO BIDWM 3 Days #6 tablet 07/31/17 [ Rx] predniSONE [PredniSONE] See Taper PO DAILY #24 tablet 07/31/17 [Rx] Allergies/Adverse Reactions: 3 Allergy/AdvReac Type Severity Reaction Status Date / Time No Known Allergies Allergy Verified 07/28/17 14:54 Date of admission: 07/28/17 21:19 Primary care physician: Teri Hernandez Discharging clinician: Yari Bui Anticipated date of discharge: 07/31/17 - Patient Status Disposition: Home, Self-Care Condition: Good Functional capacity at discharge: independent ambulation Overall status at discharge: patient is progressing back to baseline - Discharge Instructions Instructions: Sleep Apnea Syndrome (DC), Using Oxygen at Home (DC), Community- acquired Pneumonia (DC), Pneumonia (DC) Follow Up With: Roland Condon DO [Primary Care Provider] - 08/09/17 12:00 pm Additional Instructions: Take all your medications as prescribed Continue taking Augmentin for 3 more days twice per day with food Continue taking Prednisone taper dose - see instructions on prescription Use oxygen during exertion and at nighttime Follow-up with PCP within one week - Will need repeat imaging for incidental nodule Return to office or ED if symptoms worsen or show no improvement - Diet and Activity Activity: increase activity as tolerated Diet: advance to your usual diet Hospital course: Mr. Garcia is a 56 year old male with a past medical history of HTN and chronic EtOH use who presented to the [facility] ER after being evaluated at a local urgent care. The patient's had a week of cough, congestion, fever, decreased appetite , and fatigue. He stated he felt better yesterday and was up today doing some things and began to feel worse with lightheadedness and felt he was going to pass out. He stated he has coughed so much that he has chest and abdominal wall pain. He states his cough is productive for frothy white sputum. He has been taking NyQuil and DayQuil with little effect. His alcohol use consists of drinking a fifth of whiskey per week. He states he quit smoking about 23 years ago. He is also treated for genital herpes. On arrival, he is on room air with no accessory muscle use noted. He reports his pain around a 3 out of a 10 scale with coughing. Initial bloodwork shows no leukocytosis and normal kidney function. Lytes normal. Chest CT shows bilateral consolidation process with a left lower lobe calcified granuloma. He was subsequently admitted for bilateral PNA and started on IV Zosyn and Azithromycin. Steroids and bronchodilators were initiated. CIWA proctol was in place with EtOH use. He responded well to therapy but continued to use oxygen supplementation. No history of COPD. He qualified for exertional and nocturnal oxygen use. He received a total of three days of IV antibiotics and will continue Augmentin for 3 more days. Prednisone taper will be started on discharge. He was discharged home in stable condition with adequate followup in place. All questions and concerns were addressed. - Time Spent with Patient Total time spent providing and/or coordinating discharge services: - Constitutional Vitals: Temp Pulse Resp BP Pulse Ox 97.4 F L 68 18 128/79 92 07/31/17 07:43 07/31/17 07:43 07/31/17 07:43 07/31/17 07:43 07/31/17 07:43 General appearance: Present: cooperative, A&O X 3, pleasant, no acute distress, obese, answers questions appropriately - Head Head exam: Present: atraumatic, normocephalic - Eye Eye exam: Present: EOMI, normal appearance, conjuntiva pink, sclera anicteric - ENT ENT exam: Present: mucous membranes moist - Neck Neck exam general surgery: Present: supple, trachea midline - Respiratory Respiratory exam: Present: wheezes (with bibasilar crackles). Absent: respiratory distress - Cardiovascular Cardiovascular exam: Present: RRR, +S1, +S2 - GI/Abdominal GI/Abdominal exam: Present: normal bowel sounds, soft. Absent: tenderness - Extremities Exam Extremities exam: Present: warm. Absent: pedal edema, tenderness - Neurological Exam Neurological exam: Present: alert, oriented X3, no focal deficits - Psychiatric Psychiatric exam: Present: normal affect, normal mood - Skin Skin exam: Present: dry, warm <ThallaYari gonzalez - Last Filed: 07/31/17 15:39> Date of Encounter: 07/31/17 Date of admission: 07/28/17 21:19 Primary care physician: Teri Hernandez Hospital course: Mr. Garcia is a 56 year old male - Time Spent with Patient Total time spent providing and/or coordinating discharge services: - Constitutional Vitals: Temp Pulse Resp BP Pulse Ox 97.4 F L 68 16 128/79 92 07/31/17 07:43 07/31/17 07:43 07/31/17 10:45 07/31/17 07:43 07/31/17 10:45 - Attending Attestation I examined this patient and my medical decision-making was reviewed with the Resident Physician Dr. Tariq. I agree with the documented findings, disposition and treatment plan as described except to the extent set forth below. This is a 56 y/o M presented to local urgent care with worsening SOB, CORDOVA, Cough with expectoration. His chest CT showed b/l infiltrates and LLL nodule. Pt was admitted here for pneumonia and acute hypoxic resp failure. He states he is feeling lot better today..wants to go home Gen: A, A, O x 3 Chest: Diminished BS b/;, diffuse wheezing, No crackles, no rales Heart; S1S2+ RRR No murmurs a/p 1. Acute pneumonia - mostly bacterial 2. Acute COPD exacerbation 3. Acute hypoxic resp failure Improved switch to PO Abx switch to PO steroids need O2 with ambulation and at night 4. Morbid obesity with BMI - 38 counseled to loose weight He might have sleep apnea, may need to go for out pt sleep studies counseled the pt about this medically stable to d/c home today
[2017-07-31 15:23] LABS: Mycoplasma pneumoniae IgG 0.12 U/L (<=0.09)
== END 2017-07-31 14:48 | disposition home or self-care (01) | DRG 871 ==
LOC: EMEROO 16:11 → 3BNU 16:11 → SUATTDRO 21:19 → 3BNU 23:19
PROVIDERS: ADMIT Internal Medicine Hematology & Oncology; ATTEND Family Medicine

== ENCOUNTER 2020-07-28 13:08 | Inpatient (IN) ==
[2020-07-28] MEDS ORDERED: cefTRIAXone 1,000 MG in 0.9 % Sodium Chloride Mini Bag 100 ML IVPB ONE (13:55)
[2020-07-28] MEDS ORDERED: Azithromycin 500 MG in 0.9 % Sodium Chloride 250 ML IVPB ONE (13:55)
[2020-07-28 14:05] LABS: Basophils % 0.2 %; Hematocrit 40.5 % (37.5-50.1); Immature Granulocytes % 0.6 % (0-4); Mean Corpuscular HGB Conc 34.6 g/dL (31.6-35.5); Mean Corpuscular Hemoglobin 33.7 pg (28.0-33.3); Mean Corpuscular Volume 97.6 fL (83.0-100.0); Mean Platelet Volume 9.6 fL (9.4-12.4); Monocytes # 0.6 K/mcL (0.0-1.3); Neutrophils # 3.4 K/mcL (1.6-8.9); Platelet Count 197 K/mcL (140-400); Red Blood Count 4.15 M/mcL (4.19-5.50); Segmented Neutrophils % 68.2 %
[2020-07-28 14:12] LABS: INR 1.2; Prothrombin Time 13.4 Seconds (9.4-12.1)
[2020-07-28 14:14] LABS: Activated Partial Thrombo Time 27.5 Seconds (26.0-36.0)
[2020-07-28 14:27] LABS: Alanine Aminotransferase 38 Units/L (7-52); Albumin 3.6 g/dL (3.5-5.7); Albumin/Globulin Ratio 1.2 (1.1-2.2); Alkaline Phosphatase 105 Units/L (34-104); Aspartate Amino Transferase 67 Units/L (13-39); BUN/Creatinine Ratio 14 (6-26); Bilirubin,Direct 0.1 mg/dL (0.0-0.2); Bilirubin,Indirect 0.6 mg/dL (0.0-1.0); Bilirubin,Total 0.7 mg/dL (0.3-1.0); Blood Urea Nitrogen 14 mg/dL (6-20); C-Reactive Protein 48 mg/L (Less than 10); Calcium 8.2 mg/dL (8.6-10.3); Carbon Dioxide 28 mEq/L (23-29); Chloride 96 mEq/L (98-107); Glucose 106 mg/dL (70-105); Lactate Dehydrogenase 334 Units/L (140-271); Magnesium 1.7 mg/dL (1.6-2.6); Osmolality,Calculated 281 (280-300); Phosphorous 2.7 mg/dL (2.7-4.5); Sodium 135 mEq/L (136-145); Total Protein 6.6 g/dL (6.4-8.9); Troponin I < 0.03 ng/mL (< 0.04); eGFR For African Americans > 60 (> 60); eGFR For Non-African Americans > 60 (> 60)
[2020-07-28 14:44] LABS: Ferritin 555 ng/mL (20-250)
[2020-07-28] MEDS ORDERED: Ondansetron 4 MG/2 ML VIAL IVP PRN (14:48)
[2020-07-28] MEDS ORDERED: MOM Conc 10 ML UD.LIQ PO PRN (14:48)
[2020-07-28] MEDS ORDERED: Naloxone 0.4 MG/ML INJ IVP PRN (14:48)
[2020-07-28] MEDS ORDERED: *HR* HYDROcodone/Acet 5/325 mg TABLET PO PRN (14:48)
[2020-07-28] MEDS ORDERED: Acetaminophen 325 MG TABLET PO PRN (14:48)
[2020-07-28] MEDS ORDERED: *HR* OxyCODONE Immed Rel 5 MG TABLET PO PRN (14:48)
[2020-07-28] MEDS: Calcium Gluconate 1gm/50mL 1 GM/50 ML BAG IVPB SCH (16:22)
[2020-07-28] MEDS: Ipratropium 1 PUFF INHALER IH SCH ×3 (16:33→23:45)
[2020-07-28] MEDS: Furosemide 40 MG/4 ML VIAL IVP SCH (17:29)
[2020-07-28 17:48] LABS: ABG Base Excess 4 mEq/L (-2 to 3); ABG HCO3 26 mEq/L (21-27); ABG Oxygen Saturation 94 % (95-98); ABG PCO2 31 mmHg (35-45); ABG PH 7.53 pH Units (7.32-7.45); ABG PO2 63 mmHg (85-104); ABG TCO2 27 mEq/L (20-26); Blood Gas Modality BiLevel
[2020-07-28] MEDS ORDERED: Remdesivir 200 MG in 0.9 % Sodium Chloride 100 ML IVPB ONE (18:00)
[2020-07-28] MEDS: Saline Nasal Spray 44 ML BOTTLE NS SCH (20:59)
[2020-07-28] MEDS: Artificial Tears SOLN 15 ML BOTTLE BOTH EYES SCH (20:59)
[2020-07-28] MEDS: Chlorhexidine Rinse 15 ML MOUTHWASH MM SCH (20:59)
[2020-07-29] MEDS: Saline Nasal Spray 44 ML BOTTLE NS SCH ×7 (00:01→22:40)
[2020-07-29] MEDS: *HR* Enoxaparin 40 MG/0.4 ML SYRINGE SQ SCH ×3 (00:24→19:54)
[2020-07-29] MEDS: Ipratropium 1 PUFF INHALER IH SCH ×6 (04:23→23:40)
[2020-07-29 05:42] LABS: INR 1.1; Prothrombin Time 12.5 Seconds (9.4-12.1)
[2020-07-29 05:48] LABS: Eosinophils % 0.2 %; Mean Corpuscular Volume 97.8 fL (83.0-100.0); Red Cell Distribution Width 12.9 % (11.5-14.5)
[2020-07-29 05:50] LABS: Basophils % 0.4 %; Hemoglobin 15.1 g/dL (12.9-16.9); Immature Granulocytes % 0.5 % (0-4); Immature Platelets 4.9 % (1.1-6.1); Lymphocytes # 0.9 K/mcL (0.6-4.6); Lymphocytes % 16.2 %; Mean Corpuscular HGB Conc 34.3 g/dL (31.6-35.5); Mean Corpuscular Hemoglobin 33.6 pg (28.0-33.3); Mean Platelet Volume 9.9 fL (9.4-12.4); Monocytes # 0.2 K/mcL (0.0-1.3); Monocytes % 3.6 %; Neutrophils # 4.4 K/mcL (1.6-8.9); Platelet Count 227 K/mcL (140-400); Segmented Neutrophils % 79.1 %; White Blood Count 5.6 K/mcL (4.3-11.1)
[2020-07-29 06:04] LABS: Alanine Aminotransferase 51 Units/L (7-52); Albumin 3.9 g/dL (3.5-5.7); Albumin/Globulin Ratio 1.1 (1.1-2.2); Alkaline Phosphatase 121 Units/L (34-104); Aspartate Amino Transferase 86 Units/L (13-39); BUN/Creatinine Ratio 22 (6-26); Bilirubin,Total 0.5 mg/dL (0.3-1.0); Blood Urea Nitrogen 19 mg/dL (6-20); Calcium 8.8 mg/dL (8.6-10.3); Carbon Dioxide 26 mEq/L (23-29); Chloride 97 mEq/L (98-107); Globulin 3.4 g/dL (2.4-3.5); Glucose 179 mg/dL (70-105); Osmolality,Calculated 289 (280-300); Potassium 3.2 mEq/L (3.5-5.1); Sodium 136 mEq/L (136-145); Total Protein 7.3 g/dL (6.4-8.9); eGFR For African Americans > 60 (> 60); eGFR For Non-African Americans > 60 (> 60)
[2020-07-29 06:35] LABS: Ferritin 833 ng/mL (20-250); Troponin I < 0.03 ng/mL (< 0.04)
[2020-07-29 07:52] LABS: C-Reactive Protein 69 mg/L (Less than 10); Lactate Dehydrogenase 472 Units/L (140-271); Magnesium 2.4 mg/dL (1.6-2.6); Phosphorous 3.7 mg/dL (2.7-4.5)
[2020-07-29] MEDS: Dexamethasone Sodium Phos/PF 10 MG/ML VIAL IVP SCH (09:00)
[2020-07-29] MEDS: Chlorhexidine Rinse 15 ML MOUTHWASH MM SCH ×2 (09:00→19:52)
[2020-07-29] MEDS: Furosemide 40 MG/4 ML VIAL IVP SCH (09:00)
[2020-07-29] MEDS: Acyclovir 200 MG CAPSULE PO SCH (09:00)
[2020-07-29] MEDS: Multivit/Ca/Min/Fe/FA 1 TAB TABLET PO SCH (09:00)
[2020-07-29] MEDS: Artificial Tears SOLN 15 ML BOTTLE BOTH EYES SCH ×2 (09:52→19:52)
[2020-07-29] MEDS: Insulin LISPRO 300 UNITS/3 ML VIAL SUBQ SCH ×3 (12:01→19:53)
[2020-07-29] MEDS: Remdesivir 100 MG in 0.9 % Sodium Chloride 100 ML IVPB SCH (17:55)
[2020-07-29] MEDS: Calcium Gluconate 1gm/50mL 1 GM/50 ML BAG IVPB SCH (19:56)
[2020-07-30] MEDS ORDERED: Saline Nasal Spray 44 ML BOTTLE NS PRN (00:05)
[2020-07-30] MEDS: Ipratropium 1 PUFF INHALER IH SCH ×6 (04:08→23:09)
[2020-07-30 05:49] LABS: INR 1.1; Prothrombin Time 12.3 Seconds (9.4-12.1)
[2020-07-30 06:03] LABS: Alanine Aminotransferase 52 Units/L (7-52); Albumin 3.5 g/dL (3.5-5.7); Albumin/Globulin Ratio 1.2 (1.1-2.2); Alkaline Phosphatase 97 Units/L (34-104); Aspartate Amino Transferase 61 Units/L (13-39); BUN/Creatinine Ratio 31 (6-26); Bilirubin,Total 0.4 mg/dL (0.3-1.0); Blood Urea Nitrogen 29 mg/dL (6-20); Calcium 8.6 mg/dL (8.6-10.3); Carbon Dioxide 27 mEq/L (23-29); Chloride 100 mEq/L (98-107); Glucose 166 mg/dL (70-105); Osmolality,Calculated 296 (280-300); Potassium 3.3 mEq/L (3.5-5.1); Sodium 138 mEq/L (136-145); Total Protein 6.5 g/dL (6.4-8.9); eGFR For African Americans > 60 (> 60); eGFR For Non-African Americans > 60 (> 60)
[2020-07-30 06:06] LABS: Basophils % 0.1 %; Hematocrit 42.1 % (37.5-50.1); Hemoglobin 14.3 g/dL (12.9-16.9); Immature Granulocytes % 0.7 % (0-4); Lymphocytes % 6.9 %; Mean Corpuscular Volume 97.2 fL (83.0-100.0); Mean Platelet Volume 9.7 fL (9.4-12.4); Monocytes # 0.7 K/mcL (0.0-1.3); Monocytes % 4.5 %; Neutrophils # 12.7 K/mcL (1.6-8.9); Platelet Count 303 K/mcL (140-400); Red Blood Count 4.33 M/mcL (4.19-5.50); Red Cell Distribution Width 12.8 % (11.5-14.5); Segmented Neutrophils % 87.8 %
[2020-07-30 06:11] LABS: White Blood Count 14.5 K/mcL (4.3-11.1)
[2020-07-30 06:12] LABS: Magnesium 2.4 mg/dL (1.6-2.6); Phosphorous 4.1 mg/dL (2.7-4.5)
[2020-07-30 08:54] LABS: ABG Base Excess 1 mEq/L (-2 to 3); ABG HCO3 24 mEq/L (21-27); ABG Oxygen Saturation 92 % (95-98); ABG PCO2 33 mmHg (35-45); ABG PH 7.47 pH Units (7.32-7.45); ABG PO2 58 mmHg (85-104); ABG TCO2 25 mEq/L (20-26)
[2020-07-30] MEDS: Dexamethasone Sodium Phos/PF 10 MG/ML VIAL IVP SCH (08:54)
[2020-07-30] MEDS: Multivit/Ca/Min/Fe/FA 1 TAB TABLET PO SCH (08:54)
[2020-07-30] MEDS: Chlorhexidine Rinse 15 ML MOUTHWASH MM SCH ×2 (08:55→20:16)
[2020-07-30] MEDS: Acyclovir 200 MG CAPSULE PO SCH (08:55)
[2020-07-30] MEDS: Furosemide 40 MG/4 ML VIAL IVP SCH (08:55)
[2020-07-30] MEDS: *HR* Enoxaparin 40 MG/0.4 ML SYRINGE SQ SCH ×2 (08:56→20:16)
[2020-07-30] MEDS: Artificial Tears SOLN 15 ML BOTTLE BOTH EYES SCH ×2 (08:56→20:09)
[2020-07-30] MEDS: Insulin LISPRO 300 UNITS/3 ML VIAL SUBQ SCH ×4 (08:59→20:19)
[2020-07-30] MEDS ORDERED: amLODIPine 5 MG TABLET PO SCH (09:00)
[2020-07-30] MEDS ORDERED: Losartan/HCTZ 50-12.5 TABLET PO SCH (09:00)
[2020-07-30] MEDS: Remdesivir 100 MG in 0.9 % Sodium Chloride 100 ML IVPB SCH (17:21)
[2020-07-31] MEDS: Ipratropium 1 PUFF INHALER IH SCH ×6 (03:13→23:09)
[2020-07-31 06:01] LABS: Basophils % 0.2 %; Hematocrit 43.5 % (37.5-50.1); Immature Granulocytes % 0.8 % (0-4); Lymphocytes # 1.1 K/mcL (0.6-4.6); Lymphocytes % 7.2 %; Mean Corpuscular HGB Conc 34.5 g/dL (31.6-35.5); Mean Corpuscular Hemoglobin 34.1 pg (28.0-33.3); Mean Corpuscular Volume 98.9 fL (83.0-100.0); Mean Platelet Volume 9.5 fL (9.4-12.4); Monocytes # 0.7 K/mcL (0.0-1.3); Monocytes % 4.8 %; Neutrophils # 13.3 K/mcL (1.6-8.9); Platelet Count 327 K/mcL (140-400); Red Cell Distribution Width 12.8 % (11.5-14.5); White Blood Count 15.2 K/mcL (4.3-11.1)
[2020-07-31 06:14] LABS: INR 1.1; Prothrombin Time 12.3 Seconds (9.4-12.1)
[2020-07-31 06:24] LABS: Alanine Aminotransferase 55 Units/L (7-52); Albumin 3.4 g/dL (3.5-5.7); Albumin/Globulin Ratio 1.2 (1.1-2.2); Alkaline Phosphatase 103 Units/L (34-104); Aspartate Amino Transferase 59 Units/L (13-39); BUN/Creatinine Ratio 31 (6-26); Bilirubin,Total 0.4 mg/dL (0.3-1.0); Blood Urea Nitrogen 28 mg/dL (6-20); Calcium 8.8 mg/dL (8.6-10.3); Carbon Dioxide 28 mEq/L (23-29); Chloride 102 mEq/L (98-107); Globulin 2.9 g/dL (2.4-3.5); Glucose 153 mg/dL (70-105); Osmolality,Calculated 299 (280-300); Potassium 3.9 mEq/L (3.5-5.1); Sodium 140 mEq/L (136-145); Total Protein 6.3 g/dL (6.4-8.9); eGFR For African Americans > 60 (> 60); eGFR For Non-African Americans > 60 (> 60)
[2020-07-31 06:28] LABS: Magnesium 2.2 mg/dL (1.6-2.6); Phosphorous 4.2 mg/dL (2.7-4.5)
[2020-07-31] MEDS: Insulin LISPRO 300 UNITS/3 ML VIAL SUBQ SCH ×4 (08:21→20:27)
[2020-07-31] MEDS: Chlorhexidine Rinse 15 ML MOUTHWASH MM SCH ×2 (08:35→20:27)
[2020-07-31] MEDS: Dexamethasone Sodium Phos/PF 10 MG/ML VIAL IVP SCH (08:35)
[2020-07-31] MEDS: Acyclovir 200 MG CAPSULE PO SCH (08:36)
[2020-07-31] MEDS: *HR* Enoxaparin 40 MG/0.4 ML SYRINGE SQ SCH ×2 (08:36→20:28)
[2020-07-31] MEDS: Cholecalciferol (D-3) 1,000 UNIT (25MCG) TABLET PO SCH (08:36)
[2020-07-31] MEDS: Multivit/Ca/Min/Fe/FA 1 TAB TABLET PO SCH (08:36)
[2020-07-31] MEDS: Furosemide 40 MG/4 ML VIAL IVP SCH (08:38)
[2020-07-31] MEDS: Artificial Tears SOLN 15 ML BOTTLE BOTH EYES SCH ×2 (08:55→20:27)
[2020-07-31] MEDS: Remdesivir 100 MG in 0.9 % Sodium Chloride 100 ML IVPB SCH (17:55)
[2020-08-01] MEDS: Ipratropium 1 PUFF INHALER IH SCH ×6 (03:22→23:29)
[2020-08-01 06:36] LABS: Basophils # 0.1 K/mcL (0.0-0.2); Basophils % 0.3 %; Hemoglobin 14.5 g/dL (12.9-16.9); Immature Granulocytes % 1.6 % (0-4); Lymphocytes # 1.3 K/mcL (0.6-4.6); Lymphocytes % 8.9 %; Mean Corpuscular HGB Conc 33.7 g/dL (31.6-35.5); Mean Corpuscular Hemoglobin 32.8 pg (28.0-33.3); Mean Corpuscular Volume 97.3 fL (83.0-100.0); Mean Platelet Volume 9.5 fL (9.4-12.4); Monocytes # 0.9 K/mcL (0.0-1.3); Neutrophils # 12.2 K/mcL (1.6-8.9); Nucleated Red Blood Cells 0.1 /100 WBC (0); Platelet Count 329 K/mcL (140-400); Red Blood Count 4.42 M/mcL (4.19-5.50); Red Cell Distribution Width 12.9 % (11.5-14.5); Segmented Neutrophils % 83.2 %; White Blood Count 14.7 K/mcL (4.3-11.1)
[2020-08-01 06:43] LABS: Prothrombin Time 12.1 Seconds (9.4-12.1)
[2020-08-01 06:58] LABS: Alanine Aminotransferase 75 Units/L (7-52); Albumin 3.3 g/dL (3.5-5.7); Albumin/Globulin Ratio 1.1 (1.1-2.2); Alkaline Phosphatase 105 Units/L (34-104); Aspartate Amino Transferase 53 Units/L (13-39); BUN/Creatinine Ratio 34 (6-26); Bilirubin,Total 0.4 mg/dL (0.3-1.0); Blood Urea Nitrogen 29 mg/dL (6-20); Calcium 8.8 mg/dL (8.6-10.3); Carbon Dioxide 28 mEq/L (23-29); Chloride 100 mEq/L (98-107); Globulin 2.9 g/dL (2.4-3.5); Glucose 153 mg/dL (70-105); Osmolality,Calculated 293 (280-300); Potassium 4.1 mEq/L (3.5-5.1); Sodium 137 mEq/L (136-145); Total Protein 6.2 g/dL (6.4-8.9); eGFR For African Americans > 60 (> 60); eGFR For Non-African Americans > 60 (> 60)
[2020-08-01] MEDS: Cholecalciferol (D-3) 1,000 UNIT (25MCG) TABLET PO SCH (08:30)
[2020-08-01] MEDS: Chlorhexidine Rinse 15 ML MOUTHWASH MM SCH ×2 (08:31→20:18)
[2020-08-01] MEDS: Multivit/Ca/Min/Fe/FA 1 TAB TABLET PO SCH (08:31)
[2020-08-01] MEDS: *HR* Enoxaparin 40 MG/0.4 ML SYRINGE SQ SCH ×2 (08:31→20:18)
[2020-08-01] MEDS: Acyclovir 200 MG CAPSULE PO SCH (08:31)
[2020-08-01] MEDS: Furosemide 40 MG/4 ML VIAL IVP SCH (08:33)
[2020-08-01] MEDS: Dexamethasone Sodium Phos/PF 10 MG/ML VIAL IVP SCH (08:33)
[2020-08-01] MEDS: Artificial Tears SOLN 15 ML BOTTLE BOTH EYES SCH ×2 (08:34→20:11)
[2020-08-01] MEDS: Insulin LISPRO 300 UNITS/3 ML VIAL SUBQ SCH ×4 (08:35→20:16)
[2020-08-01] MEDS: Remdesivir 100 MG in 0.9 % Sodium Chloride 100 ML IVPB SCH (17:03)
[2020-08-02 02:32] LABS: Basophils # 0.1 K/mcL (0.0-0.2); Basophils % 0.5 %; Hematocrit 42.9 % (37.5-50.1); Hemoglobin 14.8 g/dL (12.9-16.9); Lymphocytes # 1.3 K/mcL (0.6-4.6); Mean Corpuscular HGB Conc 34.5 g/dL (31.6-35.5); Mean Corpuscular Hemoglobin 33.8 pg (28.0-33.3); Mean Corpuscular Volume 97.9 fL (83.0-100.0); Mean Platelet Volume 9.6 fL (9.4-12.4); Monocytes # 0.9 K/mcL (0.0-1.3); Monocytes % 6.1 %; Neutrophils # 12.2 K/mcL (1.6-8.9); Platelet Count 347 K/mcL (140-400); Red Blood Count 4.38 M/mcL (4.19-5.50); Red Cell Distribution Width 12.8 % (11.5-14.5); Segmented Neutrophils % 81.4 %
[2020-08-02 02:51] LABS: Alanine Aminotransferase 78 Units/L (7-52); Albumin 3.3 g/dL (3.5-5.7); Albumin/Globulin Ratio 1.1 (1.1-2.2); Alkaline Phosphatase 104 Units/L (34-104); Aspartate Amino Transferase 44 Units/L (13-39); BUN/Creatinine Ratio 31 (6-26); Bilirubin,Indirect 0.4 mg/dL (0.0-1.0); Bilirubin,Total 0.4 mg/dL (0.3-1.0); Blood Urea Nitrogen 26 mg/dL (6-20); C-Reactive Protein 7 mg/L (Less than 10); Calcium 8.7 mg/dL (8.6-10.3); Carbon Dioxide 27 mEq/L (23-29); Chloride 98 mEq/L (98-107); Globulin 2.9 g/dL (2.4-3.5); Glucose 183 mg/dL (70-105); Osmolality,Calculated 285 (280-300); Potassium 4.1 mEq/L (3.5-5.1); Sodium 133 mEq/L (136-145); Total Protein 6.2 g/dL (6.4-8.9); eGFR For African Americans > 60 (> 60); eGFR For Non-African Americans > 60 (> 60)
[2020-08-02] MEDS: Ipratropium 1 PUFF INHALER IH SCH ×6 (03:46→23:58)
[2020-08-02] MEDS: Artificial Tears SOLN 15 ML BOTTLE BOTH EYES SCH ×2 (09:25→21:48)
[2020-08-02] MEDS: Chlorhexidine Rinse 15 ML MOUTHWASH MM SCH ×2 (09:25→21:41)
[2020-08-02] MEDS: Cholecalciferol (D-3) 1,000 UNIT (25MCG) TABLET PO SCH (09:26)
[2020-08-02] MEDS: Acyclovir 200 MG CAPSULE PO SCH (09:26)
[2020-08-02] MEDS: Multivit/Ca/Min/Fe/FA 1 TAB TABLET PO SCH (09:26)
[2020-08-02] MEDS: *HR* Enoxaparin 40 MG/0.4 ML SYRINGE SQ SCH ×2 (09:27→21:41)
[2020-08-02] MEDS: Dexamethasone Sodium Phos/PF 10 MG/ML VIAL IVP SCH (09:45)
[2020-08-02] MEDS: Furosemide 40 MG/4 ML VIAL IVP SCH (09:45)
[2020-08-02] MEDS: Insulin LISPRO 300 UNITS/3 ML VIAL SUBQ SCH ×4 (09:46→21:43)
[2020-08-03] MEDS: Ipratropium 1 PUFF INHALER IH SCH ×5 (03:27→20:07)
[2020-08-03 06:05] LABS: Basophils # 0.1 K/mcL (0.0-0.2); Basophils % 0.7 %; Eosinophils % 0.1 %; Hematocrit 45.3 % (37.5-50.1); Hemoglobin 15.4 g/dL (12.9-16.9); Immature Granulocytes % 4.9 % (0-4); Lymphocytes # 1.5 K/mcL (0.6-4.6); Lymphocytes % 11.7 %; Mean Corpuscular Hemoglobin 33.8 pg (28.0-33.3); Mean Corpuscular Volume 99.6 fL (83.0-100.0); Mean Platelet Volume 9.7 fL (9.4-12.4); Monocytes % 7.6 %; Neutrophils # 9.7 K/mcL (1.6-8.9); Nucleated Red Blood Cells 0.2 /100 WBC (0); Platelet Count 358 K/mcL (140-400); Red Blood Count 4.55 M/mcL (4.19-5.50)
[2020-08-03 06:28] LABS: Alanine Aminotransferase 70 Units/L (7-52); Albumin 3.4 g/dL (3.5-5.7); Albumin/Globulin Ratio 1.2 (1.1-2.2); Alkaline Phosphatase 98 Units/L (34-104); Aspartate Amino Transferase 33 Units/L (13-39); BUN/Creatinine Ratio 29 (6-26); Bilirubin,Direct 0.1 mg/dL (0.0-0.2); Bilirubin,Indirect 0.4 mg/dL (0.0-1.0); Bilirubin,Total 0.5 mg/dL (0.3-1.0); Blood Urea Nitrogen 27 mg/dL (6-20); Calcium 9.1 mg/dL (8.6-10.3); Carbon Dioxide 33 mEq/L (23-29); Chloride 97 mEq/L (98-107); Globulin 2.8 g/dL (2.4-3.5); Glucose 139 mg/dL (70-105); Osmolality,Calculated 291 (280-300); Potassium 3.8 mEq/L (3.5-5.1); Sodium 137 mEq/L (136-145); Total Protein 6.2 g/dL (6.4-8.9); eGFR For African Americans > 60 (> 60); eGFR For Non-African Americans > 60 (> 60)
[2020-08-03] MEDS: Insulin LISPRO 300 UNITS/3 ML VIAL SUBQ SCH ×4 (07:43→21:53)
[2020-08-03] MEDS: Multivit/Ca/Min/Fe/FA 1 TAB TABLET PO SCH (07:56)
[2020-08-03] MEDS: Chlorhexidine Rinse 15 ML MOUTHWASH MM SCH ×2 (07:56→21:52)
[2020-08-03] MEDS: Acyclovir 200 MG CAPSULE PO SCH (07:57)
[2020-08-03] MEDS: *HR* Enoxaparin 40 MG/0.4 ML SYRINGE SQ SCH ×2 (07:57→21:52)
[2020-08-03] MEDS: Dexamethasone Sodium Phos/PF 10 MG/ML VIAL IVP SCH (07:57)
[2020-08-03] MEDS: Cholecalciferol (D-3) 1,000 UNIT (25MCG) TABLET PO SCH (07:57)
[2020-08-03] MEDS: Furosemide 40 MG/4 ML VIAL IVP SCH (07:57)
[2020-08-03] MEDS: Artificial Tears SOLN 15 ML BOTTLE BOTH EYES SCH ×2 (07:58→21:53)
[2020-08-04] MEDS: Ipratropium 1 PUFF INHALER IH SCH ×6 (00:24→20:50)
[2020-08-04 04:56] LABS: Basophils # 0.1 K/mcL (0.0-0.2); Basophils % 0.6 %; Eosinophils # 0.1 K/mcL (0.0-0.6); Eosinophils % 0.9 %; Hematocrit 41.9 % (37.5-50.1); Hemoglobin 14.5 g/dL (12.9-16.9); Immature Granulocytes % 4.9 % (0-4); Lymphocytes # 1.8 K/mcL (0.6-4.6); Lymphocytes % 14.5 %; Mean Corpuscular HGB Conc 34.6 g/dL (31.6-35.5); Mean Corpuscular Hemoglobin 34.2 pg (28.0-33.3); Mean Corpuscular Volume 98.8 fL (83.0-100.0); Mean Platelet Volume 9.6 fL (9.4-12.4); Monocytes % 8.3 %; Neutrophils # 8.6 K/mcL (1.6-8.9); Platelet Count 299 K/mcL (140-400); Red Blood Count 4.24 M/mcL (4.19-5.50); Red Cell Distribution Width 12.8 % (11.5-14.5); Segmented Neutrophils % 70.8 %; White Blood Count 12.1 K/mcL (4.3-11.1)
[2020-08-04 05:18] LABS: Alanine Aminotransferase 55 Units/L (7-52); Albumin/Globulin Ratio 1.3 (1.1-2.2); Alkaline Phosphatase 84 Units/L (34-104); Aspartate Amino Transferase 28 Units/L (13-39); BUN/Creatinine Ratio 33 (6-26); Bilirubin,Direct 0.1 mg/dL (0.0-0.2); Bilirubin,Indirect 0.4 mg/dL (0.0-1.0); Bilirubin,Total 0.5 mg/dL (0.3-1.0); Blood Urea Nitrogen 26 mg/dL (6-20); C-Reactive Protein < 5 mg/L (Less than 10); Carbon Dioxide 31 mEq/L (23-29); Chloride 100 mEq/L (98-107); Globulin 2.4 g/dL (2.4-3.5); Glucose 112 mg/dL (70-105); Osmolality,Calculated 286 (280-300); Potassium 3.5 mEq/L (3.5-5.1); Sodium 135 mEq/L (136-145); Total Protein 5.4 g/dL (6.4-8.9); eGFR For African Americans > 60 (> 60); eGFR For Non-African Americans > 60 (> 60)
[2020-08-04] MEDS: Insulin LISPRO 300 UNITS/3 ML VIAL SUBQ SCH ×4 (09:06→21:22)
[2020-08-04] MEDS: Cholecalciferol (D-3) 1,000 UNIT (25MCG) TABLET PO SCH (09:12)
[2020-08-04] MEDS: Chlorhexidine Rinse 15 ML MOUTHWASH MM SCH ×2 (09:12→20:12)
[2020-08-04] MEDS: Multivit/Ca/Min/Fe/FA 1 TAB TABLET PO SCH (09:12)
[2020-08-04] MEDS: Dexamethasone Sodium Phos/PF 10 MG/ML VIAL IVP SCH (09:12)
[2020-08-04] MEDS: Acyclovir 200 MG CAPSULE PO SCH (09:12)
[2020-08-04] MEDS: Furosemide 40 MG/4 ML VIAL IVP SCH (09:13)
[2020-08-04] MEDS: Artificial Tears SOLN 15 ML BOTTLE BOTH EYES SCH ×2 (09:13→20:13)
[2020-08-04] MEDS: *HR* Enoxaparin 40 MG/0.4 ML SYRINGE SQ SCH ×2 (09:13→20:12)
[2020-08-05] MEDS: Ipratropium 1 PUFF INHALER IH SCH ×7 (00:07→23:59)
[2020-08-05 06:30] LABS: Basophils # 0.1 K/mcL (0.0-0.2); Basophils % 0.6 %; Eosinophils # 0.1 K/mcL (0.0-0.6); Eosinophils % 0.7 %; Hematocrit 44.4 % (37.5-50.1); Hemoglobin 15.2 g/dL (12.9-16.9); Immature Granulocytes % 5.4 % (0-4); Lymphocytes % 15.1 %; Mean Corpuscular HGB Conc 34.2 g/dL (31.6-35.5); Mean Corpuscular Hemoglobin 33.9 pg (28.0-33.3); Mean Corpuscular Volume 99.1 fL (83.0-100.0); Mean Platelet Volume 9.7 fL (9.4-12.4); Monocytes % 8.8 %; Platelet Count 268 K/mcL (140-400); Red Blood Count 4.48 M/mcL (4.19-5.50); Red Cell Distribution Width 12.8 % (11.5-14.5); Segmented Neutrophils % 69.4 %; White Blood Count 10.9 K/mcL (4.3-11.1)
[2020-08-05 06:31] LABS: Lymphocytes # 1.7 K/mcL (0.6-4.6); Neutrophils # 7.6 K/mcL (1.6-8.9)
[2020-08-05 06:49] LABS: BUN/Creatinine Ratio 31 (6-26); Blood Urea Nitrogen 26 mg/dL (6-20); Calcium 8.6 mg/dL (8.6-10.3); Carbon Dioxide 32 mEq/L (23-29); Chloride 95 mEq/L (98-107); Glucose 137 mg/dL (70-105); Osmolality,Calculated 287 (280-300); Potassium 3.8 mEq/L (3.5-5.1); Sodium 135 mEq/L (136-145); eGFR For African Americans > 60 (> 60); eGFR For Non-African Americans > 60 (> 60)
[2020-08-05 06:53] LABS: Platelet Estimate Normal (Normal); Reactive Lymphocytes Present (Not Present)
[2020-08-05] MEDS: Insulin LISPRO 300 UNITS/3 ML VIAL SUBQ SCH ×4 (07:29→20:43)
[2020-08-05] MEDS: Acyclovir 200 MG CAPSULE PO SCH (07:36)
[2020-08-05] MEDS: *HR* Enoxaparin 40 MG/0.4 ML SYRINGE SQ SCH ×2 (07:36→20:28)
[2020-08-05] MEDS: Multivit/Ca/Min/Fe/FA 1 TAB TABLET PO SCH (07:36)
[2020-08-05] MEDS: Cholecalciferol (D-3) 1,000 UNIT (25MCG) TABLET PO SCH (07:36)
[2020-08-05] MEDS: Chlorhexidine Rinse 15 ML MOUTHWASH MM SCH ×2 (07:36→20:28)
[2020-08-05] MEDS: Furosemide 40 MG/4 ML VIAL IVP SCH (07:36)
[2020-08-05] MEDS: Dexamethasone Sodium Phos/PF 10 MG/ML VIAL IVP SCH (07:37)
[2020-08-05] MEDS: Artificial Tears SOLN 15 ML BOTTLE BOTH EYES SCH ×2 (07:37→20:29)
[2020-08-06] MEDS: Ipratropium 1 PUFF INHALER IH SCH ×4 (04:03→16:46)
[2020-08-06 05:55] LABS: Basophils % 0.2 %; Eosinophils # 0.1 K/mcL (0.0-0.6); Eosinophils % 0.7 %; Hematocrit 44.5 % (37.5-50.1); Hemoglobin 15.4 g/dL (12.9-16.9); Lymphocytes # 2.2 K/mcL (0.6-4.6); Lymphocytes % 12.3 %; Mean Corpuscular HGB Conc 34.6 g/dL (31.6-35.5); Mean Corpuscular Hemoglobin 33.8 pg (28.0-33.3); Mean Corpuscular Volume 97.8 fL (83.0-100.0); Mean Platelet Volume 9.9 fL (9.4-12.4); Monocytes # 1.2 K/mcL (0.0-1.3); Monocytes % 6.9 %; Neutrophils # 13.5 K/mcL (1.6-8.9); Platelet Count 269 K/mcL (140-400); Red Blood Count 4.55 M/mcL (4.19-5.50); Red Cell Distribution Width 12.9 % (11.5-14.5); Segmented Neutrophils % 76.9 %
[2020-08-06 05:57] LABS: BUN/Creatinine Ratio 31 (6-26); Blood Urea Nitrogen 26 mg/dL (6-20); Calcium 8.8 mg/dL (8.6-10.3); Carbon Dioxide 32 mEq/L (23-29); Chloride 96 mEq/L (98-107); Glucose 99 mg/dL (70-105); Osmolality,Calculated 285 (280-300); Potassium 3.7 mEq/L (3.5-5.1); Sodium 135 mEq/L (136-145); eGFR For African Americans > 60 (> 60); eGFR For Non-African Americans > 60 (> 60)
[2020-08-06 05:58] LABS: White Blood Count 17.6 K/mcL (4.3-11.1)
[2020-08-06] MEDS: Insulin LISPRO 300 UNITS/3 ML VIAL SUBQ SCH ×3 (07:56→17:23)
[2020-08-06] MEDS: Multivit/Ca/Min/Fe/FA 1 TAB TABLET PO SCH (08:02)
[2020-08-06] MEDS: *HR* Enoxaparin 40 MG/0.4 ML SYRINGE SQ SCH (08:02)
[2020-08-06] MEDS: Chlorhexidine Rinse 15 ML MOUTHWASH MM SCH (08:02)
[2020-08-06] MEDS: Cholecalciferol (D-3) 1,000 UNIT (25MCG) TABLET PO SCH (08:02)
[2020-08-06] MEDS: Acyclovir 200 MG CAPSULE PO SCH (08:03)
[2020-08-06] MEDS: Furosemide 40 MG/4 ML VIAL IVP SCH (08:03)
[2020-08-06] MEDS: Dexamethasone Sodium Phos/PF 10 MG/ML VIAL IVP SCH (08:03)
[2020-08-06] MEDS: Artificial Tears SOLN 15 ML BOTTLE BOTH EYES SCH (08:04)
[2020-08-06 08:20] LABS: C-Reactive Protein < 5 mg/L (Less than 10)
[2020-08-06 14:32] VITALS: BP 127/75
== END 2020-08-06 18:54 | disposition home or self-care (01) | DRG 177 ==
LOC: SUATTDRO → EMEROOARM 13:08 → 2NENU 18:15 → SUATTDRO 18:15 → 2NENU 18:39
PROVIDERS: ADMIT Internal Medicine; ATTEND Student in an Organized Health Care Education/Training Program